=== PATIENT | female | born 1985 | race Caucasian/White ===

== ENCOUNTER → 2019-10-17 | Outpatient (CLI) | payer BC ==
[~2019-10-17] MED LIST: IBUP800 PO; PROACE100 PO; Percocet 5-3251 EACH PO; RXHYDACE PO; Verotin-Gr Cap1 EACH PO
== END ==
LOC: LAB SHORT 10:11 → LAB EV 10:11
DX: J02.9 Acute pharyngitis, unspecified (principal)
CPT/HCPCS: 87081; 87147